=== PATIENT | female | born 1940 | race Caucasian/White ===

== ENCOUNTER → 2024-09-12 | Outpatient (CLI) | payer MEDICARE ==
--- NOTE | 2024-09-13 15:17 | MR ---
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 Then the patient was given c ontrast/gadolinium, 5 cc of Gadobutrol and multiple post contrast sequences where obtained. FINDINGS: Reproductive: Vagina: Unremarkable. No distinct colovaginal fistula identified. Uterus: The uterus is anteverted in position. Uterus measures 5.9 x 3.1 x 5.1 cm. The endometrium russell sures approximately 4 to 5 mm. Fluid is identified within the endometrial canal. There are 2 right ut erine fundus T1/T2 hypointense lesions consistent with intramural fibroids. These measure 1.5 x 1.7 x 1.3 cm and 0.5 cm. Both demonstrate decreased enhancement compared to the surrounding parenchyma. Ovaries: Atrophic appearance of both ovaries. No focal lesion identified. Bladder: Unremarkable. Bowel: Unremarkable as visualized. Peritoneum: A small amount of free fluid in the pelvis. Likely physiologic. No evidence of adenopa thy. Vasculature: Unremarkable. Abdominal wall/soft tissues: Unremarkable. Musculoskeletal: Post surgical changes with intramedullary mojgan involving the visualized right proxima l femur. This creates susceptibility artifact. 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 Multilevel degenerative disc disease. Other: Gallbladder surgically absent. No hydronephrosis. Right renal sinus thin-walled cyst measuring up to 6.6 cm. No follow-up recommended. IMPRESSION: 1. No definitive evidence for colovaginal fistula. Consider follow-up examination with CT pelvis rect al contrast if there is continued clinical concern. 2. Small fibroid changes of the uterus. 3. Normal thickness endometrium with fluid within the endometrial canal. This can be seen with cervic al stenosis versus other etiologies. Correlate clinically. [facility], , 09/13/2024 3:15 PM
== END | disposition home or self-care (01) ==
LOC: RADMRIMAIN 19:18
PROVIDERS: ATTEND Internal Medicine Gastroenterology
DX: N89.9 Noninflammatory disorder of vagina, unspecified (principal); D25.9 Leiomyoma of uterus, unspecified
CPT/HCPCS: 72197; A9585